=== PATIENT | female | born 1980 | race Caucasian/White ===

== ENCOUNTER → 2020-01-21 10:17 | Outpatient (BNVA) | payer OTHER, SELFPAY | PROVIDERS: Visit Provider Obstetrics & Gynecology | DX: D25.9 Leiomyoma of uterus, unspecified (principal) | CPT/HCPCS: 76830 ==

== ENCOUNTER 2020-02-18 14:24 | Outpatient (CLI) | payer OTHER, SELFPAY ==
--- NOTE | 2020-02-18 14:44 | XR_ITS ---
WS: [id number] SHOULDER RIGHT TECHNIQUE: 3 views of the right shoulder CLINICAL INFORMATION: PAIN IN RIGHT SHOULDER COMPARISON: None. FINDINGS: Normal acromioclavicular joint. Normal glenohumeral joint. Acromion is normal in appearance. Normal g lenoid. No evidence of acute fracture dislocation. XR/XR shoulder RT min 2V* [id number] IMPRESSION: Normal right shoulder.
== END 2020-02-18 14:25 | disposition home or self-care (01) ==
LOC: RADWPI 14:28
PROVIDERS: Family Provider Registered Nurse; PCP Registered Nurse; Visit Provider Nurse Practitioner
DX: M25.511 Pain in right shoulder (principal)
CPT/HCPCS: 73030

== ENCOUNTER 2020-04-06 12:46 | Outpatient (CLI) | payer OTHER, SELFPAY ==
--- NOTE | 2020-04-06 12:55 | IR_ITS ---
WS: [id number] Right shoulder arthrogram, 04/06/2020 Clinical Data: RIGHT SHOULDER SPRAIN Comparison: None. Fluoroscopy time: 3.1 minutes. Findings: With the usual technique, a 22-gauge small spinal needle was inserted into the right shoulder joint. After localizing the needle tip with 1 mL of Omnipaque at a concentration of 240 mg/mL, an injection of 12 mL of dilute gadolinium was done. The shoulder joint shows a normal outline. No evidence of a rotator cuff tear could be seen. IR/IR arthrogram shoulderRT [id number] Impression: Satisfactory injection of a dilute gadolinium into the right shoulder joint for preparation for MR arthrogram.
--- NOTE | 2020-04-06 12:55 | MR_ITS ---
WS: [id number] MRI right shoulder, 04/06/2020 Clinical Data: RIGHT SHOULDER SPRAIN Comparison: None. Findings: There is a complete rotator cuff tear but there is no retraction of the supraspinatus or infraspinatu s muscles.. Acromioclavicular joint osteoarthritis with mild impingement on the supraspinatus tendon. . The glenoid labrum is intact with no tear or displacement. The biceps tendon resides within the bicipital groove and there is appearance of a tear of the tendon . MR/MR shoulder RT wo/w con [id number] Impression: 1. Complete rotator cuff tear. 2. Tear of the biceps tendon within the bicipital groove. 3. Negative for glenoid labral tear or displacement.
[2020-04-06] MEDS: iohexol 300 mg/mL 50 mL Btl INTRA-ARTI (16:27)
== END 2020-04-06 12:47 | disposition home or self-care (01) ==
LOC: RADWPI 12:53
PROVIDERS: Family Provider Registered Nurse; PCP Registered Nurse; Visit Provider Orthopaedic Surgery
DX: S43.401A Unspecified sprain of right shoulder joint, initial encounter (principal); X58.XXXA Exposure to other specified factors, initial encounter; M75.121 Complete rotator cuff tear or rupture of right shoulder, not specified as traumatic; S46.211A Strain of muscle, fascia and tendon of other parts of biceps, right arm, initial encounter
CPT/HCPCS: 23350; 73223; 77002; A9579; Q9967

== ENCOUNTER → 2020-04-14 08:23 | Outpatient (BNVA) | payer OTHER, SELFPAY | PROVIDERS: Family Provider Registered Nurse; PCP Registered Nurse; Referring Provider Obstetrics & Gynecology; Visit Provider Specialist | DX: G43.711 Chronic migraine without aura, intractable, with status migrainosus (principal) | CPT/HCPCS: 99204 ==

== ENCOUNTER → 2020-05-24 08:08 | Outpatient (BNVA) | payer OTHER, SELFPAY | PROVIDERS: Family Provider Registered Nurse; PCP Registered Nurse; Visit Provider Specialist | DX: G43.711 Chronic migraine without aura, intractable, with status migrainosus (principal); Z87.891 Personal history of nicotine dependence | CPT/HCPCS: 99213 ==

== ENCOUNTER → 2020-05-30 13:57 | Outpatient (BNVA) | payer OTHER, SELFPAY | PROVIDERS: Family Provider Registered Nurse; PCP Registered Nurse; Visit Provider Orthopaedic Surgery | DX: Z11.59 Encounter for screening for other viral diseases (principal) | CPT/HCPCS: 87635 ==

== ENCOUNTER 2020-06-02 05:36 | Day surgery (SDC) | payer OTHER, SELFPAY ==
[2020-06-01 10:09] VITALS: BMI 31.8
[2020-06-02] VITALS (8 sets, daily range): BP systolic 107–136; BP diastolic 70–101; PULSE 53–79; RESP 16–29; TEMP 36.1–36.7; O2SAT 95–100
[2020-06-02 05:50] LABS: OR HCG Qualitative Urine Negative (Negative)
[2020-06-02] MEDS: sodium chloride 0.9% 1,000 ML 30 ML IV (06:10)
[2020-06-02] MEDS: metoprolol tartrate 50 mg Tablet PO (06:20)
--- NOTE | 2020-06-02 06:27 | ANES.PREANE2 ---
Pre-Anesthetic Assessment Pre-Anesthetic Assessment: Height/Weight: Height 1.65 m Weight 86.636 kg Temp Pulse Resp BP Pulse Ox 98 F 79 16 136/101 98 06/02/20 05:55 06/02/20 05:55 06/02/20 05:55 06/02/20 05:55 06/02/20 05:55 Preop Diagnosis: Right rotator cuff tear Proposed Procedure: Operation Date: 06/02/20 07:00 Proposed Procedures p Shoulder Arthroscopy 43744 S43.421A(Right) - Etienne Archibald MD s Rotator Cuff Repair(Right) - Etienne Archibald MD Familial anesthetic complications: None Was Beta Orlando taken within 24 hours: Yes Last intake: Intake Last Liquid Date 06/02/20 Last Liquid Time 04:30 Last Solid Date 06/01/20 Last Solid Time 21:00 Social: Social History: No alcohol and No tobacco Exam: Pre-Anes Outpt Exam: alert, oriented x 3, clear to auscultation bilaterally and regular rate & rhythm Airway: Cervical ROM: WNL MP: 3 Dentition: Full CV/HEM: CV/HEM: HTN Anesthetic Plan: ASA status: 2 Anesthesia: General and Regional (specify below) Other: interscalene Risk of > 500 ml blood loss (7ml/kg in children): No Meds/Allergies Current Medications: Current Medications Generic Name Dose Route Start Last Admin Trade Name Freq PRN Reason Stop Dose Admin Sodium Chloride 1,000 mls @ 30 ml s/hr 06/02/20 05:45 06/02/20 06:10 Sodium Chloride 0.9% IV 06/03/20 05:44 30 mls/hr .Q24H IRENE Administration PFSH Anesthesia PFSH: Medical History Anxiety Fracture Right ankle surgery x2 Hx of migraines Hypertension Surgical History History of delivery 2011, 2013, 2016 History of tubal ligation (~2016) History of umbilical hernia repair Family History Mother Diabetes Hypertension Grandmother Diabetes Maternal Stroke Maternal Other Heart disease Social History Smoking and tobacco status: former smoker Alcohol intake: current Alcohol intake frequency: few times a month Female Reproductive History: Date of last menstrual period: 05/03/20 Data Anesthesia Other Labs: Laboratory Results - last 48 hr 06/02/20 05:46 Urine HCG, Qual Negative Cardiac Studies: No Data to Display
--- NOTE | 2020-06-02 06:46 | ANES.PROC ---
Anesthesia Procedures Procedure/Date: 06/02/20 Nerve Block ^: Nerve Block 1: Main Anesthesia: general anesthesia Time Out Performed: Yes Consent: requested by attending/covering physician, from patient, risks and benefits reviewed and patient agrees to proceed Nerve block location: interscalene (R) Anesthesia monitors applied: pulse oximetry, EKG, BP cuff and oxygen Nerve block position: semi sitting Anesthetic Used: ropivicaine 0.5% and with decadron (3.5 mg) Amount of anesthesia used (mL): 25 Ultrasound used to: recognize landmarks, visualize and ID brachial plexus and visualize and ID interscalene groove Nerve Stimulator Used?: No Interscalene/Femoral BLK: 2 stimuplex 22 g needle used for position and inplane approach, visualize local anesthetic spread and no vascular puncture identified Patient Tolerated Procedure: well and no complications Complications: none
[2020-06-02] MEDS: midazolam 1 mg/mL INJ 5 ML 5 MG IVP (06:47)
--- NOTE | 2020-06-02 06:55 | W.PM.OPSUD ---
Surgery/Procedure H&P Update DATE OF PROCEDURE: June 02, 2020 DATE H&P PERFORMED: 04/18/20 PREOP DIAGNOSIS: Right rotator cuff tear PLANNED PROCEDURE: Operation Date: 06/02/20 07:00 Proposed Procedures p Shoulder Arthroscopy 09011 S43.421A(Right) - Etienne Archibald MD s Rotator Cuff Repair(Right) - Etienne Archibald MD
--- NOTE | 2020-06-02 07:12 | SUR.PREOP ---
4438 Nguyen Hernandez charge account identification clerk nurse asked pt if she could take ring off right 2nd finger and unable to remove it,Nguyen asked pt if she could use ring cutter to remove ring and pt verbalized understanding to get it removed,removed with ring cutter without any incident and given to in room
--- NOTE | 2020-06-02 08:25 | P.OP_ITS ---
Operative Report Date of procedure: June 02, 2020 Pre-op Diagnosis: Right rotator cuff tear Post-op diagnosis: same Post-op Findings: High-grade bursal tear right rotator cuff Procedure Done: Arthroscopic repair right rotator cuff with bio inductive implant, subacromial decompression right shoulder Implants: [employer] Regen[employer] implant Pathology: none sent Surgeon: Etienne Archibald Anesthesia: General and Nerve Block (Interscalene) Estimated blood loss (mL): 10 Complications: None Findings: The patient's glenohumeral joint was unremarkable. There is no chondromalacia of the humeral head or glenoid. The biceps tendon was healthy. The rotator cuff including the subscapularis insertion appeared healthy. Specifically no rotator cuff tearing was identified. On the bursal aspect however there was noted to be degeneration fibrillation and fraying of the anterior supraspinatus insertion involving perhaps a 40% of the thickness of the tendon. Condition: stable Disposition: PACU Procedure: The patient was taken to the operating room after she was given an interscalene block by anesthesia. She was given 2 g of Ancef. She is positioned in the lateral position where the right arm and 15 pounds of traction. A timeout was performed. A posterior portal was made 2 cm inferior medial to the posterior corner of the acromion. An anterior working portal was made with a scalpel blade. The glenohumeral arthroscopy was performed. The biceps tendon was retracted into the wound and inspected. In short, no intra- articular pathology was identified. The scope was then removed and redirected in the subacromial space. A lateral portal was opened with a scalpel. Bursal tissue was removed. Undersurface acromion was inspected. There is found to be a very small anterior curvature of the acromion. And it of itself it probably was not enough to justify acromioplasty. Attention was then focused on the bursal cuff. Bursal tissue was removed and over the leading edge of the supraspinatus more degenerative and partially torn poor quality was identified. It was probed and easily divided with the blunt end of the probe. It was felt that this partial tearing was the cause of her pain and as poor biology was identified a bio inductive implant was chosen. To facilitate healing of the implant provide greater vascularity the leading edge of acromion was outlined. A 5 5 acromionizer was introduced and the leading into the acromion planed smooth to a type I acromion. Next and a lower anterior lateral stab wound was then introduced and the regenerate and implant laid over the degenerative area of the rotator cuff. Through a central more medial portal and anterior medial and posterior medial soft tissue brandyn were placed. A second anterior and posterior staple placed in the midportion of the tendon. Finally the and an introducer was removed and 2 lateral bone brandyn were placed all with excellent purchase. Images showed the implant in satisfactory position covering areas of degenerative tendon. The shoulder was irrigated with saline. Portals were closed with 3-0 Prolene. Sterile dressings were applied. The patient was placed in a sling, extubated, and taken to recovery room in stable condition.
--- NOTE | 2020-06-02 08:28 | SUR.PHASEI ---
0826 PATIENT TO PACU FROM OR. RR EVEN AND UNLABORED. SPO2 93% ON SIMPLE MASK AT 8L. DRESSING TO RIGHT SHOULDER, CDI WITH SLING IN PLACE.
--- NOTE | 2020-06-02 08:49 | SUR.PHASEI ---
0876 PATIENT TO OPS. DENIES PAIN. DRESSING TO RIGHT SHOULDER, CDI WITH SLING IN PLACE.
--- NOTE | 2020-06-02 09:40 | ANE.PACU2 ---
Inpatient post-anesthesia follow up: Airway intact: Yes Vital signs: Temperature 97.9 F Pulse Rate 53 Respiratory Rate 18 Blood Pressure 117/80 Pulse Oximetry 95 Oxygen Delivery Me thod Room Air Oxygen Flow Rate 8 Fraction of Inspir ed Oxygen Hydration adequate: Yes Nausea and vomiting: No Pain level: 1 Mental status: Baseline
--- NOTE | 2020-06-06 08:53 | P.HP_ITS ---
Same Day Surgery H&P Indication for Procedure/HPI DATE OF PROCEDURE: June 06, 2020 CHIEF COMPLAINT/INDICATIONFOR SURGICAL PROCEDURE: 7-year history right shoulder pain. MRI has suggested rotator cuff tear. Here for arthroscopic evaluation and repair PREOP DIAGNOSIS: Right rotator cuff tear PLANNED PROCEDRUE: Operation Date: 06/02/20 07:00 Proposed Procedures p Shoulder Arthroscopy 97207 S43.421A(Right) - Etienne Archibald MD s Rotator Cuff Repair(Right) - Etienne Archibald MD Medications/Allergies* Home Medications Medication Instructions Recorded Confirmed Type losartan 100 1 tab PO BEDTIME 01/29/20 06/02/20 History mg-hydrochlorothiazide 12.5 mg tablet metoprolol tartrate 50 mg tablet 50 mg PO BID 01/29/20 06/02/20 History hydrocodone 10 mg-acetaminophen 1 tab PO BID PRN tab 04/14/20 06/02/20 History 325 mg tablet Allergies/Adverse Reactions Allergy/AdvReac Type Severity Reaction Status Date / Time No Known Allergies Allergy Verified 06/02/20 05:55 Pertinent History/Comorbid Conditions* Medical History (Updated 05/09/20 @ 11:10 by Ja Purdy MD) Anxiety Fracture Right ankle surgery x2 Hx of migraines Hypertension Surgical History (Updated 01/29/20 @ 15:08 by Kristy Knapp LPN) History of delivery 2011, 2013, 2015 History of tubal ligation (~2015) History of umbilical hernia repair Family History (Updated 05/06/20 @ 08:14 by Juani Condon) Diabetes Mother Grandmother Maternal Heart disease Hypertension Mother Stroke Grandmother Maternal Social History Smoking and tobacco status: former smoker Alcohol intake: current Alcohol intake frequency: few times a month Pertinent Exam Findings alert, oriented x 3, clear to auscultation bilaterally and regular rate & rhythm Examination right shoulder unchanged from March physical exam Recommendations Surgery/Procedure today Coding Level of Care Code Acute Garage Supervisor for Cr Areval[employer]
== END 2020-06-02 09:55 | disposition home or self-care (01) ==
PROVIDERS: PCP Registered Nurse; Visit Provider Orthopaedic Surgery
PROC: (CPT 29805; principal; 2020-06-02 07:00)
PROC: (CPT 29826; 2020-06-02 07:00)
DX: M75.101 Unspecified rotator cuff tear or rupture of right shoulder, not specified as traumatic (principal); I10 Essential (primary) hypertension; F41.9 Anxiety disorder, unspecified; Z87.891 Personal history of nicotine dependence
CPT/HCPCS: 29826; 29827; 12345; 64415; 76942; 81025; 84703; 96374; C1713; J0690; J1100; J2250; J2405; J2704; J2710; J2795; J3010; J3490; J7030

== ENCOUNTER → 2020-09-01 09:34 | Outpatient (BNVA) | payer OTHER, SELFPAY | PROVIDERS: Family Provider Registered Nurse; PCP Registered Nurse; Visit Provider Specialist | DX: G43.711 Chronic migraine without aura, intractable, with status migrainosus (principal); Z87.891 Personal history of nicotine dependence | CPT/HCPCS: 64615; J0585 ==

== ENCOUNTER → 2020-11-24 09:52 | Outpatient (BNVA) | payer OTHER, SELFPAY | PROVIDERS: Family Provider Registered Nurse; PCP Registered Nurse; Visit Provider Specialist | DX: G43.711 Chronic migraine without aura, intractable, with status migrainosus (principal); Z87.891 Personal history of nicotine dependence | CPT/HCPCS: 64615; J0585 ==

== ENCOUNTER → 2021-02-16 09:34 | Outpatient (BNVA) | payer OTHER, SELFPAY | PROVIDERS: Family Provider Registered Nurse; PCP Registered Nurse; Visit Provider Specialist | DX: G43.709 Chronic migraine without aura, not intractable, without status migrainosus (principal); Z71.89 Other specified counseling | CPT/HCPCS: 64615; 99212; 99213; G0463; J0585 ==

== ENCOUNTER → 2021-05-18 10:57 | Outpatient (BNVA) | payer OTHER, SELFPAY | PROVIDERS: Family Provider Registered Nurse; PCP Registered Nurse; Visit Provider Specialist | DX: G43.711 Chronic migraine without aura, intractable, with status migrainosus (principal); E66.3 Overweight; Z68.34 Body mass index [BMI] 34.0-34.9, adult; Z87.891 Personal history of nicotine dependence | CPT/HCPCS: 64615; 99213; J0585 ==